=== PATIENT | male | born 1945 | race Caucasian/White ===

== ENCOUNTER 2021-10-01 08:00 | Outpatient (CLI) | payer MEDICAID, MEDICARE | END 2021-10-01 23:59 | disposition home or self-care (01) | LOC: LAB.N 08:00 | PROVIDERS: ATTEND Physician Assistant Medical | DX: U07.1 COVID-19 (principal) ==

== ENCOUNTER 2021-10-01 09:56 | Outpatient (CLI) | payer MEDICAID, MEDICARE ==
--- NOTE | 2021-10-01 10:58 | XRAY Report ---
PROCEDURE: Chest 2 View X-Ray INDICATIONS: PNEUMONIA TECHNIQUE: 2 view(s) of the chest. COMPARISON: None. FINDINGS: Surgical changes and devices: None. Lungs and pleura: No pleural effusions or pneumothorax. Ill-defined right basilar opacity. Mediastinum: Mediastinal contours are within normal limits. Heart size is normal. Bones and chest wall: No suspicious bony abnormalities. Soft tissues appear unremarkable. IMPRESSION: Ill-defined right basilar opacity. This could be due to pneumonia or atelectasis or aspiration. Reviewed by: Reji Nunez MD on 10/01/2021 10:57 AM [facility] Approved by: Reji Nunez MD on 10/01/2021 10:57 AM [facility] Station ID: [id number]
== END 2021-10-01 23:59 | disposition home or self-care (01) ==
LOC: EDBD → EDSEX → DI.N 09:56
PROVIDERS: ATTEND Physician Assistant Medical
DX: U07.1 COVID-19 (principal); J18.9 Pneumonia, unspecified organism
CPT/HCPCS: 71046; U0004

== ENCOUNTER 2021-10-03 13:03 | Emergency (ER) | payer MEDICAID, MEDICARE ==
--- NOTE | 2021-10-03 13:09 | ED Physician Documentation ---
PD HPI URI - Stated complaint Stated Complaint: C+ - History obtained from History obtained from: Patient - History of Present Illness Timing - onset: How many weeks ago (onset illness about a week ago with worse cough and malaise the past several days. Seen at [facility] 2 days ago with CXR and COVID test. Xray lower left infiltrate. Dx with pneumonia and Rx with DOxycycline. Feeling worse today and COVID test positive, so here for eval and MAB.) Timing duration: Weeks (1) Timing details: Gradual onset, Still present Associated symptoms: Fever, Chills, Nasal congestion, Dry cough, Dyspnea. No: NVD, Bilateral edema Contributing factors: Unimmunized (has not had COVID vaccine). No: Sick contact (his is sick in same timeframe, so presume they contacted together.), COPD / asthma Similar symptoms before: Has not had sx before Recently seen: Clinic (2 days ago) Review of Systems Constitutional: reports: Fever, Chills, Myalgias Nose: reports: Rhinorrhea / runny nose, Congestion Throat: denies: Sore throat Cardiac: denies: Chest pain / pressure Respiratory: reports: Dyspnea, Cough, Wheezing GI: denies: Vomiting, Diarrhea Skin: denies: Rash Musculoskeletal: denies: Extremity swelling Neurologic: reports: Generalized weakness. denies: Focal weakness, Numbness, Near syncope, Altered mental status PD PAST MEDICAL HISTORY - Past Medical History Cardiovascular: Hypertension Respiratory: None Neuro: None Endocrine/Autoimmune: Type 2 diabetes GI: Ulcers Psych: Depression - Past Surgical History Past Surgical History: Yes Ortho: Knee replacement, Rotator cuff repair - Present Medications Home Medications: Ambulatory Orders Medication Instructions Recorded Confirmed Citalopram [CeleXA] 40 mg 07/27/16 Hydrocodone/Acetaminophen [[place] 1 each PO Q6H PRN #15 tablet 07/27/16 5-325 Tablet] Meloxicam 15 mg 07/27/16 Naproxen 375 mg PO BID #20 tablet 07/27/16 Omeprazole 20 mg 07/27/16 amLODIPine [Norvasc] 5 mg 07/27/16 hydroCHLOROthiazide 25 mg 07/27/16 [Hydrochlorothiazide] lisinopriL [Lisinopril] 40 mg 07/27/16 Albuterol Sulf [Ventolin Hfa 3 - 4 puffs INH QID 10 Days #1 10/03/21 Inhaler] inhaler Benzonatate [Tessalon] 100 mg PO TID PRN #20 cap 10/03/21 dexAMETHasone [Decadron] 4 mg PO DAILY #5 tablet 10/03/21 - Allergies Allergies/Adverse Reactions: Allergies Allergy/AdvReac Type Severity Reaction Status Date / Time No Known Drug Allergies Allergy Verified 10/03/21 13:45 - Social History Does the pt smoke?: No Smoking Status: Never smoker Does the pt drink ETOH?: Yes Does the pt have substance abuse?: No - Immunizations Immunizations are current?: Yes PD ED PE NORMAL - Vitals Vital signs reviewed: Yes (sats just well enough at 90-92%.) - General General: Alert and oriented X 3, No acute distress, Well developed/nourished - Neck Neck: Supple, no meningeal sign, No adenopathy - Cardiac Cardiac: RRR, No murmur - Respiratory Respiratory: No: Clear bilaterally (wheezing noted expiratory diffusely. No coarse sounds. ) - Abdomen Abdomen: Soft, Non tender - Derm Derm: Normal color, Warm and dry - Neuro Neuro: Alert and oriented X 3, No motor deficit, Normal speech Results - Vitals Vitals: Vital Signs - 24 hr 10/03/21 10/03/21 10/03/21 13:43 13:52 14:02 Temperature 37.8 C 37.8 C Heart Rate 95 102 H 95 Respiratory 19 18 18 Rate Blood Pressure 158/89 H 158/89 H O2 Saturation 91 L 91 L 10/03/21 10/03/21 10/03/21 15:33 16:00 16:30 Temperature Heart Rate 86 80 Respiratory 20 18 Rate Blood Pressure 131/73 H 114/80 O2 Saturation 94 95 95 10/03/21 10/03/21 10/03/21 16:42 16:45 17:00 Temperature Heart Rate 82 81 Respiratory 20 18 Rate Blood Pressure 142/78 H O2 Saturation 92 89 L 10/03/21 17:32 Temperature Heart Rate 77 Respiratory 21 Rate Blood Pressure 137/77 H O2 Saturation 91 L Oxygen O2 Source Room air PD MEDICAL DECISION MAKING - ED course Complexity details: reviewed old records, reviewed results, re-evaluated patient (His oxygenation level is running mostly 90% to 93%. At times will go down to 6 into the 80s. However in discussion with him his preference is to not be in the hospital at this time. He does have an oximeter at home and will check his oxygenation frequently. He will return if consistently <90%.), d/w patient (The patient is interested in the monoclonal antibody therapy. He had been prescribed doxycycline at the walk-in clinic 2 days ago. No inhalers nor medication for cough or inflammation. At this point we could give him steroids and albuterol inhaler and Tessalon.) Departure - Departure Disposition: 01 Home, Self Care Clinical Impression: COVID-19 URI (upper respiratory infection) Qualifiers: URI type: unspecified URI Qualified Code(s): J06.9 - Acute upper respiratory infection, unspecified Condition: Stable Record reviewed to determine appropriate education?: Yes Follow-Up: TREVOR JIMÉNEZ DO [Primary Care Provider] - Prescriptions: dexAMETHasone [Decadron] 4 mg PO DAILY #5 tablet Benzonatate [Tessalon] 100 mg PO TID PRN #20 cap PRN Reason: Cough Albuterol Sulf [Ventolin Hfa Inhaler] 3 - 4 puffs INH QID 10 Days #1 inhaler Comments: Your oxygenation level does dip down into the upper 80s percent at times but is mostly in the lower 90s. This is on the cusp of needing hospitalization for supplemental oxygen and other therapies. Use the albuterol inhaler 3 to 4 puffs every 4 hours or so for the next several days to week and extra times as needed for wheezing. Decadron steroid daily for 5 more days. This will cause some elevation of your blood sugars. If your sugars elevate to highly, then you can just stop the s teroids and it should come down in the next day or so. Benzonatate if needed for cough. Continue your other usual medicines and you can continue the recent antibiotic prescription as well. You have an oximeter at home. Check your oxygenation every few hours or so for the next day or 2. Return to the ER if you are consistently around 90% or in the 80s percent. I understand your preference for which she did not be in the hospital but if you are more consistently low then you would have benefit from the supplemental oxygen along with other therapies that we could do in the hospital. I transmitted your prescriptions to the [facility] pharmacy.
[2021-10-03] MEDS ORDERED: ALBUTEROL 1 PUFF INH STA ×2 (13:36→16:35)
[2021-10-03] MEDS ORDERED: DEXAMETHASONE 10 MG/ML VIAL IVP STA (13:36)
[2021-10-03] MEDS ORDERED: ACETAMINOPHEN 325 MG TABLET PO STA (13:36)
[2021-10-03] MEDS ORDERED: CASIRIVIMAB/IMDEVIMAB 10 ML in SODIUM CHLORIDE 0.9% 50 ML IV ONE (14:30)
[2021-10-03 18:16] VITALS: BP 154/84
== END 2021-10-03 19:10 | disposition home or self-care (01) ==
LOC: ED 13:03
DX: U07.1 COVID-19 (principal); J06.9 Acute upper respiratory infection, unspecified; R06.2 Wheezing; I10 Essential (primary) hypertension; E11.9 Type 2 diabetes mellitus without complications
CPT/HCPCS: 94640; 94664; 96374; 99283; 99284; A9270; J7040; M0243; Q0244

== ENCOUNTER 2021-10-09 16:48 | Inpatient (IN) | payer MEDICARE ==
--- NOTE | 2021-10-09 17:52 | ED Physician Documentation ---
PD HPI DYSPNEA - Stated complaint Stated Complaint: C+ - History obtained from History obtained from: Patient - Additional information Additional information: 76-year-old gentleman who is not vaccinated against Covid but originally became symptomatic on the or so of this month. He was seen here on the and receive Regeneron Mab therapy. Now with increasing shortness of breath. He has been on doxycycline as the chest x-ray had shown a left lower lobe infiltrate. Review of Systems Ten Systems: 10 systems reviewed and negative Constitutional: reports: Fatigue, Reviewed and negative Respiratory: reports: Dyspnea, Cough PD PAST MEDICAL HISTORY - Past Medical History Cardiovascular: Hypertension Respiratory: None Neuro: None Endocrine/Autoimmune: Type 2 diabetes GI: Ulcers : None Psych: Depression Musculoskeletal: None - Past Surgical History Past Surgical History: Yes Ortho: Knee replacement, Rotator cuff repair - Present Medications Home Medications: Ambulatory Orders Medication Instructions Recorded Confirmed Citalopram [CeleXA] 40 mg 07/27/16 Hydrocodone/Acetaminophen [[place] 1 each PO Q6H PRN #15 tablet 07/27/16 5-325 Tablet] Meloxicam 15 mg 07/27/16 Naproxen 375 mg PO BID #20 tablet 07/27/16 Omeprazole 20 mg 07/27/16 amLODIPine [Norvasc] 5 mg 07/27/16 hydroCHLOROthiazide 25 mg 07/27/16 [Hydrochlorothiazide] lisinopriL [Lisinopril] 40 mg 07/27/16 Albuterol Sulf [Ventolin Hfa 3 - 4 puffs INH QID 10 Days #1 10/03/21 Inhaler] inhaler Benzonatate [Tessalon] 100 mg PO TID PRN #20 cap 10/03/21 dexAMETHasone [Decadron] 4 mg PO DAILY #5 tablet 10/03/21 - Allergies Allergies/Adverse Reactions: Allergies Allergy/AdvReac Type Severity Reaction Status Date / Time No Known Drug Allergies Allergy Verified 10/03/21 13:45 - Social History Does the pt smoke?: No Smoking Status: Never smoker Does the pt drink ETOH?: Yes Does the pt have substance abuse?: No - Immunizations Immunizations are current?: Yes PD ED PE NORMAL - Vitals Vital signs reviewed: Yes - General General: Alert and oriented X 3, Other (He appears breathless) - HEENT HEENT: PERRL, EOMI - Neck Neck: Supple, no meningeal sign, No bony TTP - Cardiac Cardiac: RRR, No murmur - Respiratory Respiratory: Other (Breathless with relatively clear lungs) - Abdomen Abdomen: Normal bowel sounds, Soft, Non tender - Back Back: No CVA TTP, No spinal TTP - Derm Derm: Normal color, Warm and dry - Extremities Extremities: No edema, No calf tenderness / cord - Neuro Neuro: Alert and oriented X 3, Normal speech Results - Vitals Vitals: Vital Signs - 24 hr 10/09/21 10/09/21 10/09/21 17:33 17:35 18:19 Temperature 37.3 C 37.3 C Heart Rate 104 H 104 H 108 H Respiratory 28 H 28 H 26 H Rate Blood Pressure 180/101 H 180/101 H 156/96 H O2 Saturation 95 77 L 93 10/09/21 10/09/21 18:30 19:30 Temperature Heart Rate 103 H 98 Respiratory 20 24 Rate Blood Pressure 157/98 H 181/99 H O2 Saturation 95 95 Oxygen O2 Source Room air Oxygen Flow Rate 3 - EKG (time done) 1751 Rate: Rate (enter#) (107) Rhythm: Sinus tachycardia [place]: RAD Intervals: Normal TN QRS: Normal Ischemia: Non specific changes Computer interpretation: Agree with computer - Labs Labs: Laboratory Tests 10/09/21 10/09/21 10/09/21 17:33 17:50 18:26 WBC 12.0 H RBC 5.71 Hgb 17.0 Hct 52.0 MCV 91.1 MCH 29.8 MCHC 32.7 RDW 13.4 Plt Count 127 L MPV 10.8 Neut # (Auto) 10.0 H Lymph # (Auto) 1.0 L [place] # (Auto) 0.6 Eos # (Auto) 0.1 Baso # (Auto) 0.0 Absolute Nucleated RBC 0.06 Nucleated RBC % 0.5 Manual Slide Review Indicated Platelet Estimate DECREASED (<130,000) Platelet Morphology 1+ GIANT PLATELETS RBC Morph Micro Appear NORMAL APPEARANCE D-Dimer > 1050.0 H Sodium 136 Potassium 4.5 Chloride 96 L Carbon Dioxide 29 Anion Gap 11.0 BUN 16 Creatinine 0.7 Estimated GFR (MDRD) 110 Glucose 146 H Calcium 9.5 Phosphorus 3.3 PD MEDICAL DECISION MAKING - ED course ED course: 76-year-old gentleman who is not vaccinated against Covid has developed progressive Covid pneumonia now with significant hypoxemia with a sat of less than 80% at rest without oxygen. He requires approximately 3 L of supplemental oxygen here in the department. His D-dimer was elevated and he was administered full dose Lovenox. Spoke with Dr. Farias for admission at 7:38 PM. Departure - Departure Disposition: 66 [facility] DC/Xfer Clinical Impression: COVID-19, Respiratory failure with hypoxia Condition: Stable
[2021-10-09] MEDS ORDERED: ENOXAPARIN 100 MG/ML SYRINGE SUBQ STA (18:06)
[2021-10-09 18:32] LABS: BASOPHILS % (AUTO) 0.3 %; EOSINOPHILS # (AUTO) 0.1 10^3/uL (0.0-0.7); EOSINOPHILS % (AUTO) 0.8 %; MEAN CORPUSCULAR HEMOGLOBIN 29.8 pg (27.0-31.0); MEAN CORPUSCULAR HGB CONC 32.7 g/dL (32.0-36.0); MEAN CORPUSCULAR VOLUME 91.1 fL (80.0-94.0); MEAN PLATELET VOLUME 10.8 fL (7.4-11.4); MONOCYTES # (AUTO) 0.6 10^3/uL (0.0-1.0); MONOCYTES % (AUTO) 5.2 %; NEUTROPHILS % (AUTO) 83.4 %; NRBC ABSOLUTE COUNT (AUTO) 0.06 x10^3/uL; NUCLEATED RED BLOOD CELLS AUTO 0.5 /100WBC; PLT - PLATELET COUNT 127 10^3/uL (130-450); RED BLOOD COUNT 5.71 10^6/uL (4.70-6.10); RED CELL DISTRIBUTION WIDTH 13.4 % (12.0-15.0)
[2021-10-09 18:35] LABS: SLIDE REVIEW? Indicated
[2021-10-09 18:37] LABS: CALCIUM 9.5 mg/dL (8.5-10.3); CREATININE 0.7 mg/dL (0.6-1.2); PHOSPHORUS 3.3 mg/dL (2.5-4.6); POTASSIUM 4.5 mmol/L (3.5-5.0)
[2021-10-09 18:58] LABS: RBC MORPHOLOGY (MULTIPLE) NORMAL APPEARANCE (NORMAL)
[2021-10-09 18:59] LABS: PLATELET ESTIMATE, MANUAL DECREASED (<130,000) (NORMAL); PLATELET MORPHOLOGY 1+ GIANT PLATELETS (NORMAL)
[2021-10-09] MEDS ORDERED: ACETAMINOPHEN 325 MG TABLET PO PRN (19:42)
[2021-10-09] MEDS ORDERED: ONDANSETRON 4 MG/2 ML VIAL IVP PRN (19:42)
--- NOTE | 2021-10-09 19:49 | HISTORY & PHYSICAL EXAMINATION ---
Chief Complaint - Chief Complaint Chief Complaint: dyspnea and hypoxia History of Present Illness - Admitted From Admitted From:: [facility] ED - History Obtained From Records Reviewed: yes History obtained from: patient - History of Present Illness HPI Comment/Other: Patient is a 76-year-old male who presented to the ED with complaint of dyspnea. He is not vaccinated against COVID-19. He initially had symptoms consistent with COVID-19 on 09/29/2021. He was seen in the emergency department on 10/03/2021 and received Regeneron then discharged home. He was also prescribed doxycycline for a left lower lobe infiltrate seen on x-ray at the time. He presented today with complaint of worsening dyspnea and productive cough of yellowish to greenish sputum. He had also been wheezing at home. He denied fever or chills. In the ED on room air he was noted to have an oxygen saturation as low as 77%. Chest x-ray done in the ED showed diffuse bilateral airspace opacities suspicious for pneumonia, including viral agents such as COVID-19. Findings have progressed when compared to the radiograph from 10/01/2021. As a result of the above the patient was presented for admission. At bedside he denied chest pain or feeling dyspneic. He denied abdominal pain, nausea, vomiting, fever or chills. He has mild crackles on auscultation of lungs and 2+ lower extremity edema. History - Past Medical History Cardiovascular: reports: Hypertension Respiratory: reports: None Neuro: reports: None Endocrine/Autoimmune: reports: Type 2 diabetes GI: reports: Ulcers : reports: None Psych: reports: Depression Musculoskeletal: reports: None MRSA Hx?: No - Past Surgical History Ortho: reports: Knee replacement, Rotator cuff repair - Family & Social History Family History Comment/Other: Mother of lung cancer. She was a smoker. Father of heart disease. Social History Notes: He lives at home with his . He does not consume tobacco products or recreational substances. He occasionally consumes alcohol. He works with [employer]. - POLST Patient has POLST: No POLST Status: Full Code Meds/Allgy - Home Medications Home Medications: Ambulatory Orders Medication Instructions Recorded Confirmed Citalopram [CeleXA] 40 mg 07/27/16 Hydrocodone/Acetaminophen [[place] 1 each PO Q6H PRN #15 tablet 07/27/16 5-325 Tablet] Meloxicam 15 mg 07/27/16 Naproxen 375 mg PO BID #20 tablet 07/27/16 Omeprazole 20 mg 07/27/16 amLODIPine [Norvasc] 5 mg 07/27/16 hydroCHLOROthiazide 25 mg 07/27/16 [Hydrochlorothiazide] lisinopriL [Lisinopril] 40 mg 07/27/16 Albuterol Sulf [Ventolin Hfa 3 - 4 puffs INH QID 10 Days #1 10/03/21 Inhaler] inhaler Benzonatate [Tessalon] 100 mg PO TID PRN #20 cap 10/03/21 dexAMETHasone [Decadron] 4 mg PO DAILY #5 tablet 10/03/21 - Allergies Allergies/Adverse Reactions: Allergies Allergy/AdvReac Type Severity Reaction Status Date / Time No Known Drug Allergies Allergy Verified 10/03/21 13:45 Review of Systems - Constitutional Constitutional: reports: Malaise. denies: Fever, Chills - Eyes Eyes: denies: Pain, Vision loss, Dipolpia - Ears, Nose & Throat Ears, Nose & Throat: denies: Ear pain, Sore throat - Cardiovascular Cariovascular: denies: Irregular heart rate, Chest pain, Edema, Lightheadedness, Syncope - Respiratory Respiratory: reports: Cough, Sputum production, Wheezing, SOB at rest, SOB with exertion - Gastrointestinal Gastrointestinal: reports: Reflux/heartburn. denies: Abdominal pain, Abdominal distention, Constipation, Diarrhea, Nausea, Vomiting - Genitourinary Genitourinary: denies: Dysuria, Frequency, Urgency, Hematuria, Incontinence, Flank pain, Nocturia - Musculoskeletal Musculoskeletal: denies: Muscle pain, Back pain, Muscle aches - Integumentary Integumentary: denies: Rash, Pruritis, Lesions, Dryness - Neurological Neurological: denies: General weakness, Focal weakness, Headache, Dizziness - Psychiatric Psychiatric: denies: Depression, Anxiety - Endocrine Endocrine: denies: Polyuria, Polydypsia - Hematologic/Lymphatic Hematologic/Lymphatic: denies: Anemia, Bruising, Petechiae Prior Level of Functionality: Patient is normally independent of activities of daily living. Exam - Vital Signs Vital Signs: Vital Signs x48h Temp Pulse Resp BP Pulse Ox 10/09/21 19:30 98 24 181/99 H 95 10/09/21 18:30 103 H 20 157/98 H 95 10/09/21 18:19 108 H 26 H 156/96 H 93 10/09/21 17:35 37.3 C 104 H 28 H 180/101 H 77 L 10/09/21 17:33 37.3 C 104 H 28 H 180/101 H 95 - Physical Exam General Appearance: positive: Alert, Moderate distress (respiratory) Eyes Bilateral: positive: PERRL, EOMI ENT: positive: No signs of dehydration Neck: positive: Thyroid nml, No JVD Respiratory: positive: Chest non-tender, Wheezes, Other (moderate respiratory distress, Mild crackles in lung bases.) Cardiovascular: positive: No murmur, Tachycardia Abdomen: positive: Non-tender, No organomegaly, Nml bowel sounds, No distention. negative: Guarding, Rebound Back: positive: Nml inspection Skin: positive: Color nml, No rash, Warm, Dry Extremities: positive: Non-tender, Full ROM, Nml appearance, Pedal edema Neurologic/Psychiatric: positive: Oriented x3, Mood/affect nml Conclusion/Plan - Problem List (1) Respiratory failure with hypoxia Conclusion/Plan: Secondary to COVID-19 pneumonia. On room air patient's oxygen saturation dropped to 77%. Placed on 3 L of oxygen via nasal cannula in the ED but immediately switched to Hi rosalind nasal canula at FIO2 of 30% with O2Sat at 91% upon arrival to Med/Surg Floor Remdesivir to start in the morning of 10/10/2021. Decadron 6 mg IV daily day 10/26 Lovenox 90 mg subcu twice daily. Patient's D-dimer was 1050. WBC 12. He also complained of productive cough. As a result Rocephin 1 g IV daily day 10/21 and azithromycin 500 mg IV daily Day 1 initiated Qualifiers: Chronicity: acute Qualified Code(s): J96.01 - Acute respiratory failure with hypoxia (2) COVID-19 Conclusion/Plan: Patient is unvaccinated for COVID-19. On room air patient's oxygen saturation dropped to 77%. Placed on 3 L of oxygen via nasal cannula in the ED but immediately switched to Hi rosalind nasal canula at FIO2 of 30% with O2Sat at 91% upon arrival to Med/Surg Floor Remdesivir to start in the morning of 10/10/2021. Decadron 6 mg IV daily day 10/26 Lovenox 90 mg subcu twice daily. Patient's D-dimer was 1050. WBC 12. He also complained of productive cough. As a result Rocephin 1 g IV daily day 10/21 and azithromycin 500 mg IV daily Day 10/19 initiated (3) Hypertension Conclusion/Plan: Labetalol and hydralazine IV ordered every 6 hours as needed for systolic blood pressure greater than 160. (4) GERD (gastroesophageal reflux disease) Conclusion/Plan: Protonix 40 mg p.o. Daily AC ordered. (5) Depression Conclusion/Plan: Will resume patient's Celexa at home dose once verified. (6) Diabetes mellitus Conclusion/Plan: Will hold the patient's metformin Accucheck qAc and HS. SSI Check HgA1C. Carb-controlled Diet Qualifiers: Diabetes mellitus type: type 2 (7) KELLY on CPAP Conclusion/Plan: CPAP qhs at home setting - Lab Results Fish Bones: 10/09/21 17:50 10/09/21 17:33 Core Measures - Anticipated LOS I expect patient to be DC'd or transferred within 96 hours.: Yes - DVT/VTE - Prophylaxis VTE/DVT Device ordered at admit?: Yes
[2021-10-09] MEDS ORDERED: hydrALAZINE INJ 20 MG/ML VIAL IVP PRN (20:14)
[2021-10-09] MEDS ORDERED: LABETALOL 20 MG/4 ML SYRINGE IVP PRN (20:15)
--- NOTE | 2021-10-09 20:46 | XRAY Report ---
PROCEDURE: Chest 1 View X-Ray INDICATIONS: dyspnea TECHNIQUE: One view of the chest was acquired. COMPARISON: Chest radiographs 10/01/2021 FINDINGS: Surgical changes and devices: None. Lungs and pleura: No pleural effusions or pneumothorax. Patchy airspace opacities are seen in the ri ght mid to lower lung zones as well as peripherally within the left midlung zone and possibly of the left lung base. No pleural effusion or pneumothorax. Mediastinum: Mediastinal contours appear normal. Heart size is normal. Bones and chest wall: No suspicious bony lesions. Overlying soft tissues appear unremarkable. IMPRESSION: Diffuse bilateral airspace opacities are suspicious for pneumonia, including with viral agents such a s Covid-19. Findings have progressed when compared to the radiographs from 10/01/2021. Reviewed by: Diego Cannon MD on 10/09/2021 8:45 PM PST Approved by: Diego Cannon MD on 10/09/2021 8:45 PM PST Station ID: [id number]
[2021-10-09] MEDS: DEXAMETHASONE 4 MG/ML VIAL IVP SCH (20:55)
[2021-10-09] MEDS: SODIUM CHLORIDE FLUSH 0.9% 10 ML SYRINGE IVP PRN ×2 (20:56→22:48)
[2021-10-09] MEDS: AZITHROMYCIN INJ 500 MG in SODIUM CHLORIDE 0.9% 250 ML IV SCH (22:47)
[2021-10-09] MEDS: INSULIN ASPART 300 UNIT/3 ML PEN SUBQ SCH (22:47)
[2021-10-10] MEDS: SODIUM CHLORIDE FLUSH 0.9% 10 ML SYRINGE IVP SCH ×3 (00:59→17:05)
[2021-10-10] MEDS: cefTRIAXone 1 GM in SODIUM CHLORIDE 0.9% MINIBAG 100 ML IV SCH ×2 (00:59→09:19)
[2021-10-10 06:27] LABS: BASOPHILS % (AUTO) 0.3 %; EOSINOPHILS % (AUTO) 0.1 %; HCT - HEMATOCRIT 48.2 % (42.0-52.0); HGB - HEMOGLOBIN 15.7 g/dL (14.0-18.0); LYMPHOCYTES # (AUTO) 0.9 10^3/uL (1.5-3.5); LYMPHOCYTES % (AUTO) 12.6 %; MEAN CORPUSCULAR HEMOGLOBIN 29.6 pg (27.0-31.0); MEAN CORPUSCULAR HGB CONC 32.6 g/dL (32.0-36.0); MEAN CORPUSCULAR VOLUME 90.8 fL (80.0-94.0); MEAN PLATELET VOLUME 10.2 fL (7.4-11.4); MONOCYTES # (AUTO) 0.3 10^3/uL (0.0-1.0); MONOCYTES % (AUTO) 4.5 %; NEUTROPHILS # (AUTO) 5.7 10^3/uL (1.5-6.6); NEUTROPHILS % (AUTO) 80.2 %; NRBC ABSOLUTE COUNT (AUTO) 0.02 x10^3/uL; NUCLEATED RED BLOOD CELLS AUTO 0.3 /100WBC; PLT - PLATELET COUNT 107 10^3/uL (130-450); RED BLOOD COUNT 5.31 10^6/uL (4.70-6.10); RED CELL DISTRIBUTION WIDTH 13.3 % (12.0-15.0); WHITE BLOOD COUNT 7.1 x10^3/uL (4.8-10.8)
[2021-10-10 06:34] LABS: CALCIUM 8.9 mg/dL (8.5-10.3); CREATININE 0.7 mg/dL (0.6-1.2); POTASSIUM 4.6 mmol/L (3.5-5.0)
[2021-10-10] MEDS ORDERED: PANTOPRAZOLE 40 MG TABLET PO SCH (07:00)
--- NOTE | 2021-10-10 07:47 | PROVIDER PROGRESS NOTE ---
Subjective - Prog Note Date Prog Note Date: 10/10/21 - Subjective Subjective: He still feels short of breath but much improved compared to yesterday. He feels like his lower extremities are slightly more edematous than usual. Has an occasional cough. Current Medications - Current Medications Current Medications: Active Medications Acetaminophen (Acetaminophen 325 Mg Tablet) 650 mg PO Q4HR PRN PRN Reason: Pain 1 to 4 Dexamethasone (Dexamethasone 4 Mg/Ml Vial) 6 mg IVP DAILY [facility] Stop: 10/18/21 09:01 Last Admin: 10/09/21 20:55 Dose: 6 mg Documented by: Enoxaparin Sodium (Enoxaparin 80 Mg/0.8 Ml Syringe) 90 mg SUBQ BID [facility] Hydralazine HCl (Hydralazine Inj 20 Mg/Ml Vial) 10 mg IVP Q6H PRN PRN Reason: PER PHYSICIAN ORDER Azithromycin 500 mg/ Sodium (Chloride) 250 mls @ 250 mls/hr IV DAILY [facility] Stop: 10/11/21 09:59 Last Infusion: 10/10/21 00:59 Dose: Infused Documented by: Ceftriaxone Sodium 1 gm/ (Sodium Chloride) 100 mls @ 200 mls/hr IV DAILY [facility] Stop: 10/13/21 09:29 Last Infusion: 10/10/21 02:29 Dose: Infused Documented by: Insulin Aspart (Insulin Aspart 300 Unit/3 Ml Pen) 1 - 5 unit SUBQ 0800,1200,1700,2100 [facility]; Protocol Last Admin: 10/09/21 22:47 Dose: 1 unit Documented by: Labetalol HCl (Labetalol 20 Mg/4 Ml Syringe) 10 mg IVP Q6H PRN PRN Reason: PER PHYSICIAN ORDER Ondansetron HCl (Ondansetron 4 Mg/2 Ml Vial) 4 mg IVP Q6HR PRN PRN Reason: Nausea / Vomiting Pantoprazole Sodium (Pantoprazole 40 Mg Tablet) 40 mg PO QDAC [facility] Last Admin: 10/10/21 06:29 Dose: 40 mg Documented by: Sodium Chloride (Sodium Chloride Flush 0.9% 10 Ml Syringe) 10 ml IVP PRN PRN PRN Reason: NEEDED PER PROVIDER ORDERS Last Admin: 10/09/21 22:48 Dose: 10 ml Documented by: Sodium Chloride (Sodium Chloride Flush 0.9% 10 Ml Syringe) 10 ml IVP 01 00,0900,1700 [facility] Last Admin: 10/10/21 00:59 Dose: Not Given Documented by: Citalopram [CeleXA] 40 mg 07/27/16 Meloxicam 15 mg 07/27/16 Omeprazole 20 mg 07/27/16 amLODIPine [Norvasc] 5 mg 07/27/16 hydroCHLOROthiazide [Hydrochlorothiazide] 25 mg 07/27/16 lisinopriL [Lisinopril] 40 mg 07/27/16 Objective - Vital Signs/Intake & Output Reviewed Vital Signs: Yes Vital Signs: Vital Signs x48h Temp Pulse Resp BP Pulse Ox 10/10/21 02:00 134/79 H 10/10/21 00:55 36.6 C 74 22 165/96 H 95 Intake & Output: Intake & Output 10/07/21 10/08/21 10/09/21 10/10/21 23:59 23:59 23:59 23:59 Intake Total 150 450 Output Total 125 Balance 150 325 - Objective General Appearance: positive: No acute distress, Alert Eyes Bilateral: positive: Normal inspection, Conjunctivae nml ENT: positive: ENT inspection nml, Other (HFNC in place.) Neck: positive: Nml inspection Respiratory: positive: No respiratory distress, Rhonchi. negative: Wheezes, Rales Cardiovascular: positive: Regular rate & rhythm, Extrasystoles. negative: Irregularly irregular, Tachycardia Abdomen: positive: Non-tender, No distention. negative: Tenderness Skin: positive: Warm, Dry Extremities: positive: Pedal edema (+1 edema in bilateral lower extremities.) Neurologic/Psychiatric: negative: Disoriented to person, Disoriented to place - Lab Results Fish Bones: 10/10/21 06:16 10/10/21 06:16 Other Labs: Lab Results x24hrs 10/10/21 10/10/21 10/09/21 Range/Units 06:16 06:16 21:31 WBC 7.1 (4.8-10.8) x10^3/uL RBC 5.31 (4.70-6.10) 10^6/uL Hgb 15.7 (14.0-18.0) g/dL Hct 48.2 (42.0-52.0) % MCV 90.8 (80.0-94.0) fL MCH 29.6 (27.0-31.0) pg MCHC 32.6 (32.0-36.0) g/dL RDW 13.3 (12.0-15.0) % Plt Count 107 L (130-450) 10^3/uL MPV 10.2 (7.4-11.4) fL Neut # (Auto) 5.7 (1.5-6.6) 10^3/uL Lymph # (Auto) 0.9 L (1.5-3.5) 10^3/uL Brooke # (Auto) 0.3 (0.0-1.0) 10^3/uL Eos # (Auto) 0.0 (0.0-0.7) 10^3/uL Baso # (Auto) 0.0 (0.0-0.1) 10^3/uL Absolute Nucleated RBC 0.02 x10^3/uL Nucleated RBC % 0.3 /100WBC Manual Slide Review Platelet Estimate (NORMAL) Platelet Morphology (NORMAL) RBC Morph Micro Appear (NORMAL) D-Dimer (200.0-255.0) ng/mL Sodium 135 (135-145) mmol/L Potassium 4.6 (3.5-5.0) mmol/L Chloride 99 L (101-111) mmol/L Carbon Dioxide 27 (21-32) mmol/L Anion Gap 9.0 (6-13) BUN 17 (6-20) mg/dL Creatinine 0.7 (0.6-1.2) mg/dL Estimated GFR (MDRD) 110 (>89) Glucose 212 H (70-100) mg/dL POC Whole Bld Glucose 174 H (70 - 100) mg/dL Calcium 8.9 (8.5-10.3) mg/dL Phosphorus (2.5-4.6) mg/dL 10/09/21 10/09/21 10/09/21 Range/Units 18:26 17:50 17:33 WBC 12.0 H (4.8-10.8) x10^3/uL RBC 5.71 (4.70-6.10) 10^6/uL Hgb 17.0 (14.0-18.0) g/dL Hct 52.0 (42.0-52.0) % MCV 91.1 (80.0-94.0) fL MCH 29.8 (27.0-31.0) pg MCHC 32.7 (32.0-36.0) g/dL RDW 13.4 (12.0-15.0) % Plt Count 127 L (130-450) 10^3/uL MPV 10.8 (7.4-11.4) fL Neut # (Auto) 10.0 H (1.5-6.6) 10^3/uL Lymph # (Auto) 1.0 L (1.5-3.5) 10^3/uL Brooke # (Auto) 0.6 (0.0-1.0) 10^3/uL Eos # (Auto) 0.1 (0.0-0.7) 10^3/uL Baso # (Auto) 0.0 (0.0-0.1) 10^3/uL Absolute Nucleated RBC 0.06 x10^3/uL Nucleated RBC % 0.5 /100WBC Manual Slide Review Indicated Platelet Estimate DECREASED (<130,000) (NORMAL) Platelet Morphology 1+ GIANT PLATELETS (NORMAL) RBC Morph Micro Appear NORMAL APPEARANCE (NORMAL) D-Dimer > 1050.0 H (200.0-255.0) ng/mL Sodium 136 (135-145) mmol/L Potassium 4.5 (3.5-5.0) mmol/L Chloride 96 L (101-111) mmol/L Carbon Dioxide 29 (21-32) mmol/L Anion Gap 11.0 (6-13) BUN 16 (6-20) mg/dL Creatinine 0.7 (0.6-1.2) mg/dL Estimated GFR (MDRD) 110 (>89) Glucose 146 H (70-100) mg/dL POC Whole Bld Glucose (70 - 100) mg/dL Calcium 9.5 (8.5-10.3) mg/dL Phosphorus 3.3 (2.5-4.6) mg/dL ABX Reporting Has patient been on IV antibiotics over the past 48 hours?: Yes Assessment/Plan - Problem List (1) Acute respiratory failure with hypoxia Impression: This is secondary to COVID-19 pneumonia. He was saturating the 70s on room air is now requiring high flow nasal cannula. We have him on Decadron and therapeutic Lovenox given the elevated D-dimer. We also have him on IV antibiotics given the elevated white count on admission. We will continue Decadron with today being day 2. Today's also day 2 of ceftriaxone and azithromycin. We will start remdesivir today. Continue supplemental oxygen for goal saturation greater than 92%. Given the elevated D-dimer, we will keep him on therapeutic Lovenox but look to obtain a CT angiogram today. (2) COVID-19 Impression: This is a cause of his respiratory failure. The plan is as mentioned above. Continue contact precautions. (3) Diabetes mellitus Impression: His blood glucose is elevated at greater than 200 and this is exacerbated by the steroids. We will start him on Lantus 10 units in the morning and continue sliding scale. Check an A1c. Qualifiers: Diabetes mellitus type: type 2 (4) Hypertension Impression: He is hypertensive with systolics in the 130s to 160s. We will resume his home lisinopril and amlodipine. (5) GERD (gastroesophageal reflux disease) Impression: Continue his home omeprazole. (6) Depression Impression: We will continue home Celexa. (7) KELLY on CPAP Impression: We will continue his home CPAP at night.
[2021-10-10] MEDS ORDERED: ENOXAPARIN 80 MG/0.8 ML SYRINGE SUBQ SCH (09:00)
[2021-10-10] MEDS ORDERED: REMDESIVIR 100MG VIAL 200 MG in SODIUM CHLORIDE 0.9% 250 ML IV ONE (09:00)
[2021-10-10] MEDS: INSULIN ASPART 300 UNIT/3 ML PEN SUBQ SCH ×4 (09:17→21:22)
[2021-10-10] MEDS: AZITHROMYCIN INJ 500 MG in SODIUM CHLORIDE 0.9% 250 ML IV SCH (09:19)
[2021-10-10] MEDS: DEXAMETHASONE 4 MG/ML VIAL IVP SCH (09:21)
--- NOTE | 2021-10-10 09:35 | PHARMACY PROGRESS NOTE ---
- Best Possible Medication History Admit Date and Time: 10/09/211941 Processed by: Pharmacy Medication History completed: Yes Patient Interview: Pt unable to participate Secondary Source(s): Pharmacy records, Insurance records As the person ultimately responsible for medication therapy, providers are able to order a medication from an existing home medication list in [facility] via the "Reconcile Routine" prior to Confirmation of that medication by pc support specialist. Such practice is discouraged except when the physician, in their clinical judgment, deems that a medical need exists for a medication without regard to previous use.
[2021-10-10] MEDS: INSULIN GLARGINE 300 UNIT/3 ML PEN SUBQ SCH (10:55)
[2021-10-10] MEDS: ENOXAPARIN 100 MG/ML SYRINGE SUBQ SCH ×2 (10:55→21:22)
[2021-10-10 11:28] LABS: ESTIMATED AVERAGE GLUCOSE 163 mg/dL (70-100); HEMOGLOBIN A1c% 7.3 % (4.27-6.07)
[2021-10-10] MEDS: amLODIPine 5 MG TABLET PO SCH (14:08)
[2021-10-10] MEDS ORDERED: BENZONATATE 100 MG CAPSULE PO PRN (17:46)
[2021-10-11] MEDS: SODIUM CHLORIDE FLUSH 0.9% 10 ML SYRINGE IVP SCH ×3 (02:37→18:40)
[2021-10-11 06:07] LABS: BASOPHILS % (AUTO) 0.2 %; EOSINOPHILS # (AUTO) 0.1 10^3/uL (0.0-0.7); EOSINOPHILS % (AUTO) 0.5 %; HCT - HEMATOCRIT 46.4 % (42.0-52.0); HGB - HEMOGLOBIN 15.1 g/dL (14.0-18.0); LYMPHOCYTES # (AUTO) 1.2 10^3/uL (1.5-3.5); LYMPHOCYTES % (AUTO) 12.8 %; MEAN CORPUSCULAR HEMOGLOBIN 29.7 pg (27.0-31.0); MEAN CORPUSCULAR HGB CONC 32.5 g/dL (32.0-36.0); MEAN CORPUSCULAR VOLUME 91.3 fL (80.0-94.0); MEAN PLATELET VOLUME 10.5 fL (7.4-11.4); MONOCYTES # (AUTO) 0.7 10^3/uL (0.0-1.0); MONOCYTES % (AUTO) 7.3 %; NEUTROPHILS # (AUTO) 7.5 10^3/uL (1.5-6.6); NEUTROPHILS % (AUTO) 77.3 %; PLT - PLATELET COUNT 128 10^3/uL (130-450); RED BLOOD COUNT 5.08 10^6/uL (4.70-6.10); RED CELL DISTRIBUTION WIDTH 13.3 % (12.0-15.0); WHITE BLOOD COUNT 9.7 x10^3/uL (4.8-10.8)
[2021-10-11 06:10] LABS: CREATININE 0.7 mg/dL (0.6-1.2); POTASSIUM 4.1 mmol/L (3.5-5.0)
[2021-10-11] MEDS: PANTOPRAZOLE 40 MG TABLET PO SCH (06:50)
--- NOTE | 2021-10-11 07:37 | PROVIDER PROGRESS NOTE ---
Subjective - Prog Note Date Prog Note Date: 10/11/21 - Subjective Subjective: He feels so much better today. Still has a cough but his dyspnea is significantly improved. He still has lower extremity edema which he states is worse than usual. He was started on furosemide recently and was previously on hydrochlorothiazide. Current Medications - Current Medications Current Medications: Active Medications Acetaminophen (Acetaminophen 325 Mg Tablet) 650 mg PO Q4HR PRN PRN Reason: Pain 1 to 4 Allopurinol (Allopurinol 100 Mg Tablet) 100 mg PO DAILY [facility] Last Admin: 10/11/21 08:38 Dose: 100 mg Documented by: Amlodipine Besylate (Amlodipine 5 Mg Tablet) 5 mg PO DAILY [facility] Last Admin: 10/11/21 08:38 Dose: 5 mg Documented by: Benzonatate (Benzonatate 100 Mg Capsule) 100 mg PO TID PRN PRN Reason: Cough Dexamethasone (Dexamethasone 4 Mg/Ml Vial) 6 mg IVP DAILY [facility] Stop: 10/18/21 09:01 Last Admin: 10/11/21 09:00 Dose: 6 mg Documented by: Enoxaparin Sodium (Enoxaparin 100 Mg/Ml Syringe) 90 mg SUBQ BID [facility] Last Admin: 10/11/21 09:01 Dose: 90 mg Documented by: Furosemide (Furosemide 20 Mg Tablet) 20 mg PO DAILY [facility] Last Admin: 10/11/21 09:01 Dose: 20 mg Documented by: Hydralazine HCl (Hydralazine Inj 20 Mg/Ml Vial) 10 mg IVP Q6H PRN PRN Reason: PER PHYSICIAN ORDER Last Admin: 10/10/21 17:04 Dose: 10 mg Documented by: Ceftriaxone Sodium 1 gm/ (Sodium Chloride) 100 mls @ 200 mls/hr IV DAILY [facility] Stop: 10/13/21 09:29 Last Infusion: 10/11/21 09:33 Dose: Infused Documented by: Remdesivir 100 mg/ Sodium (Chloride) 100 mls @ 200 mls/hr IV DAILY [facility] Stop: 10/14/21 09:29 Last Infusion: 10/11/21 10:44 Dose: Infused Documented by: Insulin Aspart (Insulin Aspart 300 Unit/3 Ml Pen) 1 - 5 unit SUBQ 0800,1200,1700,2100 [facility]; Protocol Last Admin: 10/11/21 11:52 Dose: 2 unit Documented by: Insulin Glargine (Insulin Glargine 300 Unit/3 Ml Pen) 10 unit SUBQ DAILY [facility] Last Admin: 10/11/21 09:01 Dose: 10 unit Documented by: Lisinopril (Lisinopril 20 Mg Tablet) 40 mg PO DAILY [facility] Last Admin: 10/11/21 09:02 Dose: 40 mg Documented by: Metoprolol Succinate (Metoprolol Succinate 25 Mg Tablet) 25 mg PO DAILY [facility] Last Admin: 10/11/21 09:02 Dose: 25 mg Documented by: Ondansetron HCl (Ondansetron 4 Mg/2 Ml Vial) 4 mg IVP Q6HR PRN PRN Reason: Nausea / Vomiting Pantoprazole Sodium (Pantoprazole 40 Mg Tablet) 40 mg PO QDAC [facility] Last Admin: 10/11/21 06:50 Dose: 40 mg Documented by: Sodium Chloride (Sodium Chloride Flush 0.9% 10 Ml Syringe) 10 ml IVP PRN PRN PRN Reason: NEEDED PER PROVIDER ORDERS Last Admin: 10/09/21 22:48 Dose: 10 ml Documented by: Sodium Chloride (Sodium Chloride Flush 0.9% 10 Ml Syringe) 10 ml IVP 0100,0900,1700 [facility] Last Admin: 10/11/21 09:02 Dose: 10 ml Documented by: Omeprazole 20 mg PO QDAC 07/27/16 amLODIPine [Norvasc] 5 mg PO DAILY 07/27/16 lisinopriL [Lisinopril] 40 mg PO DAILY 07/27/16 Albuterol Sulf [Ventolin Hfa Inhaler] 1 - 2 puffs INH Q4H PRN 10/10/21 Furosemide [Lasix] 20 mg PO DAILY 10/10/21 Metoprolol Succinate [Toprol Xl] 25 mg PO DAILY 10/10/21 allopurinoL [Zyloprim] 100 mg PO DAILY 10/10/21 metFORMIN [Glucophage] 500 mg PO BIDWM 10/10/21 Objective - Vital Signs/Intake & Output Reviewed Vital Signs: Yes Vital Signs: Vital Signs x48h Temp Pulse Resp BP Pulse Ox 10/11/21 06:18 36.4 C L 66 19 158/91 H 96 10/11/21 01:00 36.4 C L 72 17 167/81 H 99 Intake & Output: Intake & Output 10/08/21 10/09/21 10/10/21 12/26/21 23:59 23:59 23:59 23:59 Intake Total 150 2170 300 Output Total 525 300 Balance 150 1645 0 - Objective General Appearance: positive: No acute distress, Alert Eyes Bilateral: positive: Normal inspection, Conjunctivae nml ENT: positive: ENT inspection nml Neck: positive: Thyroid nml Respiratory: positive: No respiratory distress, Rhonchi. negative: Wheezes, Rales Cardiovascular: positive: Regular rate & rhythm, No murmur. negative: Tachycardia Skin: positive: Warm, Dry Extremities: positive: Pedal edema (+1 edema in bilateral lower extremities.) Neurologic/Psychiatric: negative: Disoriented to person, Disoriented to place - Lab Results Fish Bones: 10/11/21 05:30 10/11/21 05:30 Other Labs: Lab Results x24hrs 10/11/21 10/11/21 10/10/21 Range/Units 05:30 05:30 21:19 WBC 9.7 (4.8-10.8) x10^3/uL RBC 5.08 (4.70-6.10) 10^6/uL Hgb 15.1 (14.0-18.0) g/dL Hct 46.4 (42.0-52.0) % MCV 91.3 (80.0-94.0) fL MCH 29.7 (27.0-31.0) pg MCHC 32.5 (32.0-36.0) g/dL RDW 13.3 (12.0-15.0) % Plt Count 128 L (130-450) 10^3/uL MPV 10.5 (7.4-11.4) fL Neut # (Auto) 7.5 H (1.5-6.6) 10^3/uL Lymph # (Auto) 1.2 L (1.5-3.5) 10^3/uL Foard # (Auto) 0.7 (0.0-1.0) 10^3/uL Eos # (Auto) 0.1 (0.0-0.7) 10^3/uL Baso # (Auto) 0.0 (0.0-0.1) 10^3/uL Absolute Nucleated RBC 0.00 x10^3/uL Nucleated RBC % 0.0 /100WBC Sodium 136 (135-145) mmol/L Potassium 4.1 (3.5-5.0) mmol/L Chloride 99 L (101-111) mmol/L Carbon Dioxide 28 (21-32) mmol/L Anion Gap 9.0 (6-13) BUN 19 (6-20) mg/dL Creatinine 0.7 (0.6-1.2) mg/dL Estimated GFR (MDRD) 110 (>89) Glucose 151 H (70-100) mg/dL POC Whole Bld Glucose 162 H (70 - 100) mg/dL Estimat Average Glucose (70-100) mg/dL Hemoglobin A1c % (4.27-6.07) % Calcium 9.0 (8.5-10.3) mg/dL 10/10/21 10/10/21 10/10/21 Range/Units 16:41 12:17 07:57 WBC (4.8-10.8) x10^3/uL RBC (4.70-6.10) 10^6/uL Hgb (14.0-18.0) g/dL Hct (42.0-52.0) % MCV (80.0-94.0) fL MCH (27.0-31.0) pg MCHC (32.0-36.0) g/dL RDW (12.0-15.0) % Plt Count (130-450) 10^3/uL MPV (7.4-11.4) fL Neut # (Auto) (1.5-6.6) 10^3/uL Lymph # (Auto) (1.5-3.5) 10^3/uL Foard # (Auto) (0.0-1.0) 10^3/uL Eos # (Auto) (0.0-0.7) 10^3/uL Baso # (Auto) (0.0-0.1) 10^3/uL Absolute Nucleated RBC x10^3/uL Nucleated RBC % /100WBC Sodium (135-145) mmol/L Potassium (3.5-5.0) mmol/L Chloride (101-111) mmol/L Carbon Dioxide (21-32) mmol/L Anion Gap (6-13) BUN (6-20) mg/dL Creatinine (0.6-1.2) mg/dL Estimated GFR (MDRD) (>89) Glucose (70-100) mg/dL POC Whole Bld Glucose 182 H 157 H 193 H (70 - 100) mg/dL Estimat Average Glucose (70-100) mg/dL Hemoglobin A1c % (4.27-6.07) % Calcium (8.5-10.3) mg/dL 10/10/21 Range/Units 06:16 WBC (4.8-10.8) x10^3/uL RBC (4.70-6.10) 10^6/uL Hgb (14.0-18.0) g/dL Hct (42.0-52.0) % MCV (80.0-94.0) fL MCH (27.0-31.0) pg MCHC (32.0-36.0) g/dL RDW (12.0-15.0) % Plt Count (130-450) 10^3/uL MPV (7.4-11.4) fL Neut # (Auto) (1.5-6.6) 10^3/uL Lymph # (Auto) (1.5-3.5) 10^3/uL Foard # (Auto) (0.0-1.0) 10^3/uL Eos # (Auto) (0.0-0.7) 10^3/uL Baso # (Auto) (0.0-0.1) 10^3/uL Absolute Nucleated RBC x10^3/uL Nucleated RBC % /100WBC Sodium (135-145) mmol/L Potassium (3.5-5.0) mmol/L Chloride (101-111) mmol/L Carbon Dioxide (21-32) mmol/L Anion Gap (6-13) BUN (6-20) mg/dL Creatinine (0.6-1.2) mg/dL Estimated GFR (MDRD) (>89) Glucose (70-100) mg/dL POC Whole Bld Glucose (70 - 100) mg/dL Estimat Average Glucose 163 H (70-100) mg/dL Hemoglobin A1c % 7.3 H (4.27-6.07) % Calcium (8.5-10.3) mg/dL Assessment/Plan - Problem List (1) Acute respiratory failure with hypoxia Impression: Secondary to COVID-19 pneumonia. He is significantly improved today and is now down to room air with oxygen saturations varying from 93 to 95%. Given his marked improvement, we will keep him hospitalized 1 more night and if he remains on room air then he can be discharged home tomorrow. We have had him on Decadron and remdesivir which we will continue today but look to discontinue tomorrow if we can discharge him. He has also been on therapeutic Lovenox given his elevated D-dimer, we will check a CT angiogram. If there is no pulmonary embolisms and this will be discontinued. We will continue to monitor his respiratory status. (2) COVID-19 Impression: This is the cause of his respiratory failure. Will continue remdesivir and Decadron today but look to discontinue it tomorrow as mentioned above. We will keep him on antibiotics given there was concern for bacterial component given his elevated white count on admission. We will look to switch to oral antibiotics for discharge tomorrow. (3) Diabetes mellitus Impression: Blood glucose is well controlled. We will continue his current insulin regimen with Lantus daily and sliding scale. This has been exacerbated by the steroids will resume his home regimen on discharge. Qualifiers: Diabetes mellitus type: type 2 (4) Hypertension Impression: His blood pressure is well controlled. We have resumed his home regimen. (5) GERD (gastroesophageal reflux disease) Impression: Continue Protonix. (6) KELLY on CPAP Impression: Stable. Continue home CPAP.
[2021-10-11] MEDS: INSULIN ASPART 300 UNIT/3 ML PEN SUBQ SCH ×4 (08:37→21:28)
[2021-10-11] MEDS: allopurinoL 100 MG TABLET PO SCH (08:38)
[2021-10-11] MEDS: amLODIPine 5 MG TABLET PO SCH (08:38)
[2021-10-11] MEDS: cefTRIAXone 1 GM in SODIUM CHLORIDE 0.9% MINIBAG 100 ML IV SCH (08:39)
[2021-10-11] MEDS: DEXAMETHASONE 4 MG/ML VIAL IVP SCH (09:00)
[2021-10-11] MEDS: INSULIN GLARGINE 300 UNIT/3 ML PEN SUBQ SCH (09:01)
[2021-10-11] MEDS: ENOXAPARIN 100 MG/ML SYRINGE SUBQ SCH (09:01)
[2021-10-11] MEDS: FUROSEMIDE 20 MG TABLET PO SCH (09:01)
[2021-10-11] MEDS: lisinopriL 20 MG TABLET PO SCH (09:02)
[2021-10-11] MEDS: METOPROLOL SUCCINATE 25 MG TABLET PO SCH (09:02)
[2021-10-11] MEDS: REMDESIVIR 100MG VIAL 100 MG in SODIUM CHLORIDE 0.9% 100ML 100 ML IV SCH (09:32)
[2021-10-11] MEDS: AZITHROMYCIN INJ 500 MG in SODIUM CHLORIDE 0.9% 250 ML IV SCH (10:40)
[2021-10-11] MEDS ORDERED: IOPAMIDOL-300 100 ML VIAL ONE (13:54)
[2021-10-11] MEDS ORDERED: IOPAMIDOL-300 100 ML VIAL IVP ONE (14:43)
--- NOTE | 2021-10-11 15:05 | CT Report ---
PROCEDURE: ANGIO CHEST W/WO INDICATIONS: Hypoxia. Covid. Elevated d-dimer. CONTRAST: IV CONTRAST: Isovue 300 ml: 80 PO CONTRAST: *NO PO CONTRAST TECHNIQUE: After the administration of intravenous contrast, 2 mm axial images were acquired from the pulmonary apices to the posterior costophrenic angles during the arterial phase. In addition, 1 mm lung kernel and 5 mm soft tissue kernel reconstructions were performed. 3-dimensional coronal oblique maximum int ensity projection (MIP) reformats, 8 mm axial MIP, and 5 mm coronal and sagittal MPR reformats were t hen performed through the thorax. For radiation dose reduction, the following was used: automated exp osure control, adjustment of mA and/or kV according to patient size. COMPARISON: None FINDINGS: Image quality: Excellent. Pulmonary arteries: The pulmonary arteries demonstrate bilateral urinary emboli. The pulmonary emboli are nonocclusive. Lungs and pleura: Diffuse bilateral patchy airspace opacities in a peripheral subpleural distribution are seen consistent with patient history of Covid. Mediastinum: Heart size is normal, without pericardial effusion. No mediastinal or hilar adenopathy . The coronary arteries have atherosclerotic calcifications. Thoracic aorta is normal in caliber and enhancement. Esophagus is normal in caliber, without hiatal hernia. Bones and chest wall: No suspicious bony lesions. Ribs and thoracic spine appear intact throughout. No axillary or supraclavicular adenopathy. The thyroid is normal in size and there are no incident al findings. Abdomen: The right adrenal gland has a 3.5 x 3.1 cm nodule measuring -9 Hounsfield units most consist ent with a lipid rich benign adenoma. IMPRESSION: 1. Bilateral multisegmental but nonocclusive pulmonary emboli. 2. Bilateral airspace opacities consistent with patient history of Covid-19. 3. Benign right adrenal adenoma. Reviewed by: Will Ordonez on 10/11/2021 2:04 PM [facility] Approved by: Will Ordonez on 10/11/2021 2:04 PM [facility] Station ID: [id number]
--- NOTE | 2021-10-11 17:05 | Ultrasound Report ---
PROCEDURE: Duplex Ext Veins Bilateral INDICATIONS: XU RANDALL TECHNIQUE: Real-time imaging, as well as color and pulse Doppler interrogation, were performed of the deep veins of both legs from the inguinal ligament to the popliteal fossa. COMPARISON: None FINDINGS: The right common femoral vein and superficial femoral vein demonstrate normal compressibility. The ri ght popliteal veins and proximal tibial veins are not compressible and demonstrate thrombus consisten t with deep venous thrombosis. The calf veins are not well visualized due to edema. The left common femoral vein and proximal superficial vein demonstrate normal compressibility. The le ft mid and distal superficial femoral vein and popliteal vein are not compressible and demonstrated t hrombus consistent with deep venous thrombosis. The calf veins are not well visualized due to edema. IMPRESSION: Bilateral DVT as above. Findings were given to Dr. Marley by the industrial technician at 4:25 PM. Reviewed by: Will Ordonez on 10/11/2021 4:04 PM [facility] Approved by: Will Ordonez on 10/11/2021 4:04 PM [facility] Station ID: [id number]
[2021-10-11] MEDS: APIXABAN 5 MG TABLET PO SCH (21:26)
[2021-10-12] MEDS: SODIUM CHLORIDE FLUSH 0.9% 10 ML SYRINGE IVP SCH ×3 (03:24→17:11)
[2021-10-12 05:37] LABS: BASOPHILS % (AUTO) 0.2 %; EOSINOPHILS # (AUTO) 0.1 10^3/uL (0.0-0.7); EOSINOPHILS % (AUTO) 0.6 %; HCT - HEMATOCRIT 48.3 % (42.0-52.0); HGB - HEMOGLOBIN 15.7 g/dL (14.0-18.0); LYMPHOCYTES # (AUTO) 1.6 10^3/uL (1.5-3.5); MEAN CORPUSCULAR HEMOGLOBIN 30.1 pg (27.0-31.0); MEAN CORPUSCULAR HGB CONC 32.5 g/dL (32.0-36.0); MEAN CORPUSCULAR VOLUME 92.7 fL (80.0-94.0); MEAN PLATELET VOLUME 9.9 fL (7.4-11.4); MONOCYTES # (AUTO) 0.6 10^3/uL (0.0-1.0); MONOCYTES % (AUTO) 6.9 %; NEUTROPHILS # (AUTO) 6.3 10^3/uL (1.5-6.6); NEUTROPHILS % (AUTO) 71.9 %; PLT - PLATELET COUNT 127 10^3/uL (130-450); RED BLOOD COUNT 5.21 10^6/uL (4.70-6.10); RED CELL DISTRIBUTION WIDTH 13.3 % (12.0-15.0); WHITE BLOOD COUNT 8.7 x10^3/uL (4.8-10.8)
[2021-10-12 05:41] LABS: CREATININE 0.8 mg/dL (0.6-1.2); POTASSIUM 4.7 mmol/L (3.5-5.0)
[2021-10-12] MEDS: PANTOPRAZOLE 40 MG TABLET PO SCH (06:07)
[2021-10-12] MEDS: AMOXICILLIN 250 MG CAPSULE PO SCH ×3 (08:20→17:09)
[2021-10-12] MEDS: APIXABAN 5 MG TABLET PO SCH ×2 (08:20→21:42)
[2021-10-12] MEDS: allopurinoL 100 MG TABLET PO SCH (08:21)
[2021-10-12] MEDS: amLODIPine 5 MG TABLET PO SCH (08:21)
[2021-10-12] MEDS: METOPROLOL SUCCINATE 25 MG TABLET PO SCH (08:21)
[2021-10-12] MEDS: DEXAMETHASONE 4 MG/ML VIAL IVP SCH (08:21)
[2021-10-12] MEDS: REMDESIVIR 100MG VIAL 100 MG in SODIUM CHLORIDE 0.9% 100ML 100 ML IV SCH (08:21)
[2021-10-12] MEDS: FUROSEMIDE 20 MG TABLET PO SCH (08:21)
[2021-10-12] MEDS: lisinopriL 20 MG TABLET PO SCH (08:21)
[2021-10-12] MEDS: INSULIN ASPART 300 UNIT/3 ML PEN SUBQ SCH ×4 (08:22→21:42)
[2021-10-12] MEDS: INSULIN GLARGINE 300 UNIT/3 ML PEN SUBQ SCH (08:24)
--- NOTE | 2021-10-12 11:34 | PROVIDER PROGRESS NOTE ---
Subjective - Prog Note Date Prog Note Date: 10/12/21 - Subjective Subjective: He reports feeling well. No dyspnea at rest or with activity. He is able to walk a little bit more. His legs are still edematous. Current Medications - Current Medications Current Medications: Active Medications Acetaminophen (Acetaminophen 325 Mg Tablet) 650 mg PO Q4HR PRN PRN Reason: Pain 1 to 4 Last Admin: 10/11/21 21:26 Dose: 650 mg Documented by: Allopurinol (Allopurinol 100 Mg Tablet) 100 mg PO DAILY [facility] Last Admin: 10/12/21 08:21 Dose: 100 mg Documented by: Amlodipine Besylate (Amlodipine 5 Mg Tablet) 5 mg PO DAILY [facility] Last Admin: 10/12/21 08:21 Dose: 5 mg Documented by: Amoxicillin (Amoxicillin 250 Mg Capsule) 1,000 mg PO TIDWM [facility] Last Admin: 10/12/21 08:20 Dose: 1,000 mg Documented by: Apixaban (Apixaban 5 Mg Tablet) 10 mg PO BID [facility] Last Admin: 10/12/21 08:20 Dose: 10 mg Documented by: Benzonatate (Benzonatate 100 Mg Capsule) 100 mg PO TID PRN PRN Reason: Cough Last Admin: 10/11/21 21:26 Dose: 100 mg Documented by: Dexamethasone (Dexamethasone 4 Mg/Ml Vial) 6 mg IVP DAILY [facility] Stop: 10/18/21 09:01 Last Admin: 10/12/21 08:21 Dose: 6 mg Documented by: Furosemide (Furosemide 20 Mg Tablet) 20 mg PO DAILY [facility] Last Admin: 10/12/21 08:21 Dose: 20 mg Documented by: Hydralazine HCl (Hydralazine Inj 20 Mg/Ml Vial) 10 mg IVP Q6H PRN PRN Reason: PER PHYSICIAN ORDER Last Admin: 10/10/21 17:04 Dose: 10 mg Documented by: Remdesivir 100 mg/ Sodium (Chloride) 100 mls @ 200 mls/hr IV DAILY [facility] Stop: 10/14/21 09:29 Last Infusion: 10/12/21 09:00 Dose: Infused Documented by: Insulin Aspart (Insulin Aspart 300 Unit/3 Ml Pen) 1 - 5 unit SUBQ 0800,1200,1700,2100 [facility]; Protocol Last Admin: 10/12/21 08:22 Dose: Not Given Documented by: Insulin Glargine (Insulin Glargine 300 Unit/3 Ml Pen) 10 unit SUBQ DAILY [facility] Last Admin: 10/12/21 08:24 Dose: 10 unit Documented by: Lisinopril (Lisinopril 20 Mg Tablet) 40 mg PO DAILY [facility] Last Admin: 10/12/21 08:21 Dose: 40 mg Documented by: Metoprolol Succinate (Metoprolol Succinate 25 Mg Tablet) 25 mg PO DAILY [facility] Last Admin: 10/12/21 08:21 Dose: 25 mg Documented by: Ondansetron HCl (Ondansetron 4 Mg/2 Ml Vial) 4 mg IVP Q6HR PRN PRN Reason: Nausea / Vomiting Pantoprazole Sodium (Pantoprazole 40 Mg Tablet) 40 mg PO QDAC [facility] Last Admin: 10/12/21 06:07 Dose: 40 mg Documented by: Polyethylene Glycol (Polyethylene Glycol 3350 17 Gm Packet) 17 gm PO DAILY [facility] Sodium Chloride (Sodium Chloride Flush 0.9% 10 Ml Syringe) 10 ml IVP PRN PRN PRN Reason: NEEDED PER PROVIDER ORDERS Last Admin: 10/09/21 22:48 Dose: 10 ml Documented by: Sodium Chloride (Sodium Chloride Flush 0.9% 10 Ml Syringe) 10 ml IVP 0100,0900,1700 [facility] Last Admin: 10/12/21 08:23 Dose: 10 ml Documented by: Omeprazole 20 mg PO QDAC 07/27/16 amLODIPine [Norvasc] 5 mg PO DAILY 07/27/16 lisinopriL [Lisinopril] 40 mg PO DAILY 07/27/16 Albuterol Sulf [Ventolin Hfa Inhaler] 1 - 2 puffs INH Q4H PRN 10/10/21 Furosemide [Lasix] 20 mg PO DAILY 10/10/21 Metoprolol Succinate [Toprol Xl] 25 mg PO DAILY 10/10/21 allopurinoL [Zyloprim] 100 mg PO DAILY 10/10/21 metFORMIN [Glucophage] 500 mg PO BIDWM 10/10/21 Objective - Vital Signs/Intake & Output Reviewed Vital Signs: Yes Vital Signs: Vital Signs x48h Temp Pulse Pulse Resp BP Pulse Ox 10/12/21 07:25 36.4 C L 66 20 131/69 H 94 10/12/21 04:18 36.5 C 71 18 145/78 H 94 Intake & Output: Intake & Output 10/09/21 10/10/21 10/11/21 10/12/21 23:59 23:59 23:59 23:59 Intake Total 150 2170 1440 340 Output Total 525 6915 775 Balance 150 1645 -485 -435 - Objective General Appearance: positive: No acute distress, Alert Eyes Bilateral: positive: Normal inspection, Conjunctivae nml ENT: positive: ENT inspection nml Neck: positive: Nml inspection Respiratory: positive: No respiratory distress, Rhonchi. negative: Wheezes, Rales Cardiovascular: positive: Regular rate & rhythm. negative: Tachycardia Skin: positive: Warm, Dry Extremities: positive: Pedal edema (+1 to +2 edema in bilateral lower extremities) Neurologic/Psychiatric: positive: Motor nml. negative: Disoriented to person, Disoriented to place - Lab Results Fish Bones: 10/12/21 05:07 10/12/21 05:07 Other Labs: Lab Results x24hrs 10/12/21 10/12/21 10/12/21 Range/Units 11:09 07:23 05:07 WBC (4.8-10.8) x10^3/uL RBC (4.70-6.10) 10^6/uL Hgb (14.0-18.0) g/dL Hct (42.0-52.0) % MCV (80.0-94.0) fL MCH (27.0-31.0) pg MCHC (32.0-36.0) g/dL RDW (12.0-15.0) % Plt Count (130-450) 10^3/uL MPV (7.4-11.4) fL Neut # (Auto) (1.5-6.6) 10^3/uL Lymph # (Auto) (1.5-3.5) 10^3/uL Loving # (Auto) (0.0-1.0) 10^3/uL Eos # (Auto) (0.0-0.7) 10^3/uL Baso # (Auto) (0.0-0.1) 10^3/uL Absolute Nucleated RBC x10^3/uL Nucleated RBC % /100WBC Sodium 139 (135-145) mmol/L Potassium 4.7 (3.5-5.0) mmol/L Chloride 99 L (101-111) mmol/L Carbon Dioxide 32 (21-32) mmol/L Anion Gap 8.0 (6-13) BUN 26 H (6-20) mg/dL Creatinine 0.8 (0.6-1.2) mg/dL Estimated GFR (MDRD) 94 (>89) Glucose 145 H (70-100) mg/dL POC Whole Bld Glucose 197 H 117 H (70 - 100) mg/dL Calcium 9.0 (8.5-10.3) mg/dL 10/12/21 10/11/21 10/11/21 Range/Units 05:07 20:57 17:01 WBC 8.7 (4.8-10.8) x10^3/uL RBC 5.21 (4.70-6.10) 10^6/uL Hgb 15.7 (14.0-18.0) g/dL Hct 48.3 (42.0-52.0) % MCV 92.7 (80.0-94.0) fL MCH 30.1 (27.0-31.0) pg MCHC 32.5 (32.0-36.0) g/dL RDW 13.3 (12.0-15.0) % Plt Count 127 L (130-450) 10^3/uL MPV 9.9 (7.4-11.4) fL Neut # (Auto) 6.3 (1.5-6.6) 10^3/uL Lymph # (Auto) 1.6 (1.5-3.5) 10^3/uL Loving # (Auto) 0.6 (0.0-1.0) 10^3/uL Eos # (Auto) 0.1 (0.0-0.7) 10^3/uL Baso # (Auto) 0.0 (0.0-0.1) 10^3/uL Absolute Nucleated RBC 0.00 x10^3/uL Nucleated RBC % 0.0 /100WBC Sodium (135-145) mmol/L Potassium (3.5-5.0) mmol/L Chloride (101-111) mmol/L Carbon Dioxide (21-32) mmol/L Anion Gap (6-13) BUN (6-20) mg/dL Creatinine (0.6-1.2) mg/dL Estimated GFR (MDRD) (>89) Glucose (70-100) mg/dL POC Whole Bld Glucose 163 H 141 H (70 - 100) mg/dL Calcium (8.5-10.3) mg/dL 10/11/21 Range/Units 11:33 WBC (4.8-10.8) x10^3/uL RBC (4.70-6.10) 10^6/uL Hgb (14.0-18.0) g/dL Hct (42.0-52.0) % MCV (80.0-94.0) fL MCH (27.0-31.0) pg MCHC (32.0-36.0) g/dL RDW (12.0-15.0) % Plt Count (130-450) 10^3/uL MPV (7.4-11.4) fL Neut # (Auto) (1.5-6.6) 10^3/uL Lymph # (Auto) (1.5-3.5) 10^3/uL Loving # (Auto) (0.0-1.0) 10^3/uL Eos # (Auto) (0.0-0.7) 10^3/uL Baso # (Auto) (0.0-0.1) 10^3/uL Absolute Nucleated RBC x10^3/uL Nucleated RBC % /100WBC Sodium (135-145) mmol/L Potassium (3.5-5.0) mmol/L Chloride (101-111) mmol/L Carbon Dioxide (21-32) mmol/L Anion Gap (6-13) BUN (6-20) mg/dL Creatinine (0.6-1.2) mg/dL Estimated GFR (MDRD) (>89) Glucose (70-100) mg/dL POC Whole Bld Glucose 219 H (70 - 100) mg/dL Calcium (8.5-10.3) mg/dL ABX Reporting Has patient been on IV antibiotics over the past 48 hours?: No Assessment/Plan - Problem List (1) Acute respiratory failure with hypoxia Impression: This is now resolved. This is likely secondary to Covid pneumonia although it may also be related to the bilateral pulmonary embolisms. He is on room air today but desaturates to 89% with any activity. We will keep him hospitalized for least 1 more night. Continue remdesivir and Decadron. He is now on Eliquis for the PEs. I am hopeful he can be discharged tomorrow if his oxygen saturations are above 92% with activity. (2) COVID-19 Impression: This is contributing to his respiratory failure. CT did reveal bilateral infiltrates. He is now on room air at rest but does become hypoxic with activity. We will continue remdesivir and Decadron with hopes he can be discharged tomorrow. (3) Bilateral pulmonary embolism Impression: CT angiogram was obtained yesterday given elevated D-dimer. It revealed bilateral pulmonary embolisms. We will check a troponin and BNP although low suspicion for right heart strain. We cannot obtain an echocardiogram as it is not available this week. He has now been placed on Eliquis. I discussed with him that he will need to be treated for at least 3 to 6 months and have a hype rcoagulable work-up on outpatient basis. (4) Diabetes mellitus Impression: His blood glucose has been elevated due to steroids but controlled overall. Continue sliding scale. Qualifiers: Diabetes mellitus type: type 2 (5) Hypertension Impression: His blood pressure is well controlled on his current regimen. (6) GERD (gastroesophageal reflux disease) Impression: Continue Protonix. (7) KELLY on CPAP Impression: Continue home CPAP.
[2021-10-12] MEDS: polyethylene glycoL 3350 17 GM PACKET PO SCH (11:56)
[2021-10-13] MEDS: SODIUM CHLORIDE FLUSH 0.9% 10 ML SYRINGE IVP SCH ×2 (05:32→08:54)
[2021-10-13] MEDS: PANTOPRAZOLE 40 MG TABLET PO SCH (06:02)
[2021-10-13 06:20] LABS: BASOPHILS % (AUTO) 0.4 %; EOSINOPHILS % (AUTO) 0.4 %; HCT - HEMATOCRIT 50.8 % (42.0-52.0); HGB - HEMOGLOBIN 16.4 g/dL (14.0-18.0); LYMPHOCYTES # (AUTO) 1.7 10^3/uL (1.5-3.5); LYMPHOCYTES % (AUTO) 15.9 %; MEAN CORPUSCULAR HEMOGLOBIN 29.4 pg (27.0-31.0); MEAN CORPUSCULAR HGB CONC 32.3 g/dL (32.0-36.0); MEAN PLATELET VOLUME 10.5 fL (7.4-11.4); MONOCYTES # (AUTO) 0.8 10^3/uL (0.0-1.0); MONOCYTES % (AUTO) 7.3 %; NEUTROPHILS # (AUTO) 7.8 10^3/uL (1.5-6.6); NEUTROPHILS % (AUTO) 73.1 %; PLT - PLATELET COUNT 149 10^3/uL (130-450); RED BLOOD COUNT 5.58 10^6/uL (4.70-6.10); RED CELL DISTRIBUTION WIDTH 13.4 % (12.0-15.0); WHITE BLOOD COUNT 10.6 x10^3/uL (4.8-10.8)
[2021-10-13 06:22] LABS: CALCIUM 9.3 mg/dL (8.5-10.3); CREATININE 0.7 mg/dL (0.6-1.2); POTASSIUM 4.4 mmol/L (3.5-5.0)
[2021-10-13] MEDS: amLODIPine 5 MG TABLET PO SCH (08:52)
[2021-10-13] MEDS: APIXABAN 5 MG TABLET PO SCH (08:52)
[2021-10-13] MEDS: AMOXICILLIN 250 MG CAPSULE PO SCH ×3 (08:52→16:58)
[2021-10-13] MEDS: allopurinoL 100 MG TABLET PO SCH (08:52)
[2021-10-13] MEDS: lisinopriL 20 MG TABLET PO SCH (08:53)
[2021-10-13] MEDS: SACCHAROMYCES BOULARDII 250 MG CAPSULE PO SCH ×2 (08:53→16:58)
[2021-10-13] MEDS: FUROSEMIDE 20 MG TABLET PO SCH (08:53)
[2021-10-13] MEDS: DEXAMETHASONE 4 MG/ML VIAL IVP SCH (08:53)
[2021-10-13] MEDS: METOPROLOL SUCCINATE 25 MG TABLET PO SCH (08:53)
[2021-10-13] MEDS: polyethylene glycoL 3350 17 GM PACKET PO SCH (08:53)
[2021-10-13] MEDS: INSULIN ASPART 300 UNIT/3 ML PEN SUBQ SCH ×3 (09:05→16:58)
[2021-10-13] MEDS: INSULIN GLARGINE 300 UNIT/3 ML PEN SUBQ SCH (09:06)
[2021-10-13] MEDS: REMDESIVIR 100MG VIAL 100 MG in SODIUM CHLORIDE 0.9% 100ML 100 ML IV SCH (09:07)
--- NOTE | 2021-10-13 11:20 | Discharge Plan ---
Discharge Plan Problem Reviewed?: Yes Disposition: Home, Self Care Condition: Stable Prescriptions: Amoxicillin 875 mg PO BID #12 tablet Apixaban [Eliquis] 10 mg PO BID 6 Days #24 tablet Apixaban [Eliquis] 5 mg PO BID 90 Days #180 tablet Saccharomyces Boulardii [Florastor] 250 mg PO BIDWM 6 Days #12 cap Diet: Diabetic Activity Restrictions: Activity as Tolerated Shower Restrictions: No (fall precaution) Instruction Topics: COVID-19 [facility], COVID-19 [facility] Department Statement, Embolism Pulmonary, Apixaban oral tablets, Amoxicillin capsules or tablets Health Concerns: pulmonary Embolism, Covid 19 Plan of Treatment: You had O2 desaturation study in hospital, and You are not required to have Oxygen now. you have no acute respiratory distress. You may followup with [facility] for Covid 19 recommendations. you were found to have blood clots in your lung. You are prescribed Eliquis to treat for your blood clots. You may take 10mg twice daily for another 6 days, then your Eliquis dosage is switched to 5 mg twice daily for three months now. You may followup with your PCP to have hypercoagulation study as well to see if you need continue to have another 3 months of Eliquis. Care Goals: Stabilization and improvement of your respiratory status Assessment: Discussed the care plan with you, answered your questions, you understood Additional Instructions or Follow Up instructions: You may follow-up with your PCP in 1 week. should your symptoms return or worsen, such as you feel shortness of breathing, your oxygen saturation is drop, you may present to ER or call 911 for help No Smoking: If you smoke, Please STOP! Call for help.
--- NOTE | 2021-10-13 11:42 | DISCHARGE SUMMARY ---
Discharge Summary Admit Date: 10/09/21 Discharge Date: 10/13/21 Discharging Provider: Ramon Jorgensen Condition at Discharge: Stable Discharge Disposition: 01 Home, Self Care Discharge Facility Name: home - DIAGNOSES Discharge Diagnoses with Status of Each Condition: (1) Acute respiratory failure with hypoxia resolved. pt has 95% O2 sat on room air and no acute respiratory distress. pt had O2 desat study and did not require home O2. (2) COVID-19 stable and has no acute respiratory distress (3) Bilateral pulmonary embolism stable, pt is prescribed Eliquis to treat for his PE (4) Diabetes mellitus stable, A1C is 7.3, resume home meds (5) Hypertension stable, resume home meds (6) GERD (gastroesophageal reflux disease) stable (7) KELLY on CPAP Continue home CPAP. - HPI History of Present Illness: refer from Dr. Farias's HPI on 10/09/21 Patient is a 76-year-old male who presented to the ED with complaint of dyspnea. He is not vaccinated against COVID-19. He initially had symptoms consistent with COVID-19 on 09/29/2021. He was seen in the emergency department on 10/03/2021 and received Regeneron then discharged home. He was also prescribed doxycycline for a left lower lobe infiltrate seen on x-ray at the time. He presented today with complaint of worsening dyspnea and productive cough of yellowish to greenish sputum. He had also been wheezing at home. He denied fever or chills. In the ED on room air he was noted to have an oxygen saturation as low as 77%. Chest x-ray done in the ED showed diffuse bilateral airspace opacities suspicious for pneumonia, including viral agents such as COVID-19. Findings have progressed when compared to the radiograph from 10/01/2021. As a result of the above the patient was presented for admission. At bedside he denied chest pain or feeling dyspneic. He denied abdominal pain, nausea, vomiting, fever or chills. He has mild crackles on auscultation of lungs and 2+ lower extremity edema. - ALLERGIES Allergies/Adverse Reactions: Allergies Allergy/AdvReac Type Severity Reaction Status Date / Time No Known Drug Allergies Allergy Verified 10/03/21 13:45 - MEDICATIONS Home Medications: Ambulatory Orders Medication Instructions Recorded Confirmed Omeprazole 20 mg PO QDAC 07/27/16 10/10/21 amLODIPine [Norvasc] 5 mg PO DAILY 07/27/16 10/10/21 lisinopriL [Lisinopril] 40 mg PO DAILY 07/27/16 10/10/21 Albuterol Sulf [Ventolin Hfa 1 - 2 puffs INH Q4H PRN 10/10/21 10/10/21 Inhaler] Furosemide [Lasix] 20 mg PO DAILY 10/10/21 10/10/21 Metoprolol Succinate [Toprol Xl] 25 mg PO DAILY 10/10/21 10/10/21 allopurinoL [Zyloprim] 100 mg PO DAILY 10/10/21 10/10/21 metFORMIN [Glucophage] 500 mg PO BIDWM 10/10/21 10/10/21 Amoxicillin 875 mg PO BID #12 tablet 10/13/21 Apixaban [Eliquis] 5 mg PO BID 90 Days #180 tablet 10/13/21 Apixaban [Eliquis] 10 mg PO BID 6 Days #24 tablet 10/13/21 Saccharomyces Boulardii [Florastor] 250 mg PO BIDWM 6 Days #12 cap 10/13/21 - PHYSICAL EXAM AT DISCHARGE General Appearance: positive: No acute distress, Alert. negative: Lethargic Eyes Bilateral: positive: Normal inspection, No lid inflammation ENT: positive: ENT inspection nml, No signs of dehydration. negative: Purulent nasal drainage Neck: positive: Nml inspection, Trachea midline. negative: Tracheal deviation Respiratory: positive: Chest non-tender, No respiratory distress. negative: Wheezes, Rales Cardiovascular: positive: Regular rate & rhythm. negative: Tachycardia, Bradycardia, Systolic murmur Peripheral Pulses: positive: 2+ Abdomen: positive: Non-tender, Nml bowel sounds, No distention. negative: Tenderness Back: positive: Nml inspection Skin: positive: Color nml, Warm, Dry. negative: Cyanosis Extremities: positive: Non-tender, Full ROM, Nml appearance Neurologic/Psychiatric: positive: Oriented x3, Motor nml, Sensation nml, Mood/affect nml. negative: Weakness, Sensory loss, Facial droop, Slurred/abnml speech, Depressed mood/affect - LABS Result Diagrams: 10/13/21 05:35 10/13/21 05:35 - FOLLOW UP Follow Up: You had O2 desaturation study in hospital, and You are not required to have Oxygen now. you have no acute respiratory distress. You may followup with [facility] for Covid 19 recommendations. you were found to have blood clots in your lung. You are prescribed Eliquis to treat for your blood clots. You may take 10mg twice daily for another 6 days, then your Eliquis dosage is switched to 5 mg twice daily for three months now. You may followup with your PCP to have hypercoagulation study as well to see if you need continue to have another 3 months of Eliquis. You may follow-up with your PCP in 1 week. should your symptoms return or worsen, such as you feel shortness of breathing, your oxygen saturation is drop, you may present to ER or call 911 for help - TIME SPENT Time Spent in Discharge (Minutes): 30
[2021-10-13 16:35] VITALS: BP 142/58
== END 2021-10-13 18:54 | disposition home or self-care (01) | DRG 177 ==
LOC: EDSEX → EDBD → EDSEX 16:48 → ED 16:48 → EDBD 16:48 → MS2 19:42
PROVIDERS: ADMIT Internal Medicine; ATTEND Nurse Practitioner Gerontology
DX: U07.1 COVID-19 (principal); J96.91 Respiratory failure, unspecified with hypoxia; E11.9 Type 2 diabetes mellitus without complications; J96.01 Acute respiratory failure with hypoxia; I26.99 Other pulmonary embolism without acute cor pulmonale; J12.82 Pneumonia due to coronavirus disease 2019; I82.403 Acute embolism and thrombosis of unspecified deep veins of lower extremity, bilateral; I10 Essential (primary) hypertension; K21.9 Gastro-esophageal reflux disease without esophagitis; G47.33 Obstructive sleep apnea (adult) (pediatric); F32.A Depression, unspecified; E11.65 Type 2 diabetes mellitus with hyperglycemia; T38.0X5A Adverse effect of glucocorticoids and synthetic analogues, initial encounter; Y92.239 Unspecified place in hospital as the place of occurrence of the external cause; R60.0 Localized edema; Z79.84 Long term (current) use of oral hypoglycemic drugs; Z79.899 Other long term (current) drug therapy
CPT/HCPCS: 36415; 71045; 71275; 80048; 83036; 83880; 84100; 84484; 85025; 85379; 93005; 93970; 96372; 99283; 99285; A9270; J1650; J1815; Q9967

== ENCOUNTER 2021-10-27 17:28 | Outpatient (CLI) | payer MEDICARE, OTHER ==
--- NOTE | 2021-10-28 08:47 | XRAY Report ---
PROCEDURE: Chest 2 View X-Ray INDICATIONS: PNEUMONIA TECHNIQUE: 2 view(s) of the chest. COMPARISON: October 09, 2021 FINDINGS: SUPPORT DEVICES: None. LUNGS/PLEURA: Improved aeration of lungs with residual, predominantly peripheral airspace opacities. No pleural effusion or pneumothorax. MEDIASTINUM: The cardiomediastinal silhouette is within normal limits. BONES/SOFT TISSUES: No acute abnormality. IMPRESSION: 1.Improved aeration with residual bilateral airspace opacities. Reviewed by: Bill Thompson MD on 10/28/2021 8:46 AM [facility] Approved by: Bill Thompson MD on 10/28/2021 8:46 AM [facility] Station ID: [id number]
== END 2021-10-27 17:29 | disposition home or self-care (01) ==
LOC: DI.N 17:28
PROVIDERS: ATTEND Family Medicine
DX: J18.9 Pneumonia, unspecified organism (principal)

== ENCOUNTER 2022-04-26 14:58 | Outpatient (CLI) | payer MEDICARE, OTHER ==
--- NOTE | 2022-04-26 17:08 | XRAY Report ---
PROCEDURE: Lumbar Spine 2 View INDICATIONS: DDD LUMBAR SPINE TECHNIQUE: 3 views of the lumbar spine were acquired. COMPARISON: CT angiogram of chest dated 10/11/2021 and chest radiograph dated 10/27/2021. FINDINGS: Bones: 5 [id number] vertebrae are present. There is mild dextroscoliosis of lumbar spine cente red at L2-3 level. Degenerative endplate changes and bilateral facet arthrosis throughout lumbar spin e is seen. Age indeterminant superior endplate compression deformity involving L1 vertebral body is s een with up to 50% loss of L1 vertebral body height. No acute compression fracture seen. No suspiciou s bony lesions. Soft tissues: Overlying bowel gas pattern is normal. No suspicious soft tissue calcifications. IMPRESSION: Age indeterminant superior endplate compression deformity at L1 level new since 2 study. No other compression fracture or spondylolisthesis. 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 No gross acute compression fracture or spondylolisthesis. Scoliosis as above. Reviewed by: Dom Rodriguez MD on 04/26/2022 5:06 PM PDT Approved by: Dom Rodriguez MD on 04/26/2022 5:06 PM PDT Station ID: [id number]
== END 2022-04-26 14:59 | disposition home or self-care (01) ==
LOC: DI 14:58
PROVIDERS: ATTEND Physician Assistant Medical
DX: M51.36 Other intervertebral disc degeneration, lumbar region (principal); M43.8X6 Other specified deforming dorsopathies, lumbar region

== ENCOUNTER 2023-08-28 18:49 | Outpatient (CLI) | payer MEDICARE, OTHER | END 2023-08-28 18:50 | disposition critical access hospital (66) | LOC: EMS 18:49 | DX: S01.112A Laceration without foreign body of left eyelid and periocular area, initial encounter (principal); W18.30XA Fall on same level, unspecified, initial encounter; Y92.481 Parking lot as the place of occurrence of the external cause; F10.129 Alcohol abuse with intoxication, unspecified | CPT/HCPCS: A0425; A0429 ==

== ENCOUNTER 2023-08-28 19:09 | Emergency (ER) | payer MEDICARE, OTHER ==
--- NOTE | 2023-08-28 19:23 | ED Physician Documentation ---
PD HPI Fall - Stated complaint Stated Complaint: HBD, FELL, LEFT EYE LAC - History obtained from History obtained from: Patient, EMS - History of Present Illness Mechanism of injury: Tripped. No: Syncope Fall distance: Standing position Where injury occurred: Home (He states he had 2 drinks while watching the football game. He went outside to stand on the deck and states he tripped and fell forward. A neighbor saw him with some bleeding on the face and called EMS. He remembers the event.) Timing - onset: How many minutes ago (30), Today Injury(ies) location: Face, Right Hand (thumb). No: Neck, Chest, Abdomen Associated symptoms: No: LOC, AMS, Weakness, Paresthesias, Nausea / vomiting Worsens with: Palpation Contributing factors: Intoxicated. No: Anticoagulated Similar symptoms before: Has not had sx before Review of Systems Cardiac: denies: Chest pain / pressure GI: denies: Abdominal Pain Neurologic: denies: Focal weakness, Numbness, Altered mental status, Headache, LOC PD PAST MEDICAL HISTORY - Past Medical History Cardiovascular: Hypertension Respiratory: None Neuro: None Endocrine/Autoimmune: Type 2 diabetes GI: Ulcers : None Psych: Depression Musculoskeletal: None Derm: Psoriasis - Past Surgical History Past Surgical History: Yes Ortho: Knee replacement, Rotator cuff repair - Present Medications Home Medications: Ambulatory Orders Medication Instructions Recorded Confirmed amLODIPine [Norvasc] 5 mg PO DAILY 07/27/16 08/28/23 lisinopriL [Lisinopril] 40 mg PO DAILY 07/27/16 08/28/23 Furosemide [Lasix] 20 mg PO DAILY 10/10/21 08/28/23 metFORMIN [Glucophage] 500 mg PO BIDWM 10/10/21 08/28/23 Saccharomyces Boulardii [Florastor] 250 mg PO BIDWM PRN 08/28/23 08/28/23 - Allergies Allergies/Adverse Reactions: Allergies Allergy/AdvReac Type Severity Reaction Status Date / Time No Known Drug Allergies Allergy Verified 08/28/23 19:20 - Social History Does the pt smoke?: No Smoking Status: Never smoker Does the pt drink ETOH?: Yes Does the pt have substance abuse?: No - Immunizations Immunizations are current?: Yes - POLST Patient has POLST: No POLST Status: Full Code PD ED PE NORMAL - Vitals Vital signs reviewed: Yes - General General: Alert and oriented X 3, No acute distress, Well developed/nourished - HEENT HEENT: PERRL, EOMI, Other (partial thickness abrasion linear on left forehead. No full thickness. Small areas 1-2 mm of superficial skin loss. no FB. ) - Neck Neck: Supple, no meningeal sign, No bony TTP - Cardiac Cardiac: RRR, No murmur - Respiratory Respiratory: Clear bilaterally, Other (no chestwall tenderness) - Abdomen Abdomen: Soft, Non tender - Derm Derm: Normal color, Warm and dry - Extremities Extremities: Normal ROM s pain (except at right thumb IP joint, with bruising and swelling and deformity. Unable to bend it. Small volar lac at IP. MCP seems normal to palpation. Will get xray. 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 There is a dorsal dislocation of the distal phalanx of the thumb. There is a small corner avulsion fracture as well.) Procedures - Laceration (location) right nelida Length in cm: 1.2 (laceration of thumb near IP joint, but not exactly and so not considering open fracture.) Wound type: Linear, Into subcut fat, Clean Neurovascular status: Sensory intact, Motor intact Tendon involvement: Tendon intact Anesthesia: Lidocaine 1% Wound preparation: Irrigated copiously NS Skin layer closure: Nylon, Interrupted, Size #-0 - enter number (4), Sutures - enter # (4) Other: Patient tolerated well, No complications, Neurovascular intact, Dressing applied (and finger splint) - Reduction Body part reduced: Right, Finger (thumb) Fracture or dislocation: Dislocation Anesthesia: Digital block PD Medical Decision Making - ED course Complexity details: considered differential (The patient had been drinking and states he missed stepped and tripped outside on the deck. He remembers the event. No loss of consciousness. No concussive symptoms. A neighbor called EMS. No apparent injury otherwise. Abrasion on the forehead.), d/w patient Reviewed Lab Results: No concussive symptoms and he does not take blood thinners. He denies any headache at this time. He is able to converse well. Shared decision to not do any imaging or testing. His arrives and she is comfortable bringing him home. Departure - Departure Disposition: 01 Home, Self Care Clinical Impression: Fall from slip, trip, or stumble Qualifiers: Encounter type: initial encounter Qualified Code(s): W01.0XXA - Fall on same level from slipping, tripping and stumbling without subsequent striking against object, initial encounter Alcohol intoxication Qualifiers: Complication of substance-induced condition: uncomplicated Qualified Code(s): F10.920 - Alcohol use, unspecified with intoxication, uncomplicated Facial abrasion Qualifiers: Encounter type: initial encounter Qualified Code(s): S00.81XA - Abrasion of other part of head, initial encounter Dislocation of thumb Qualifiers: Encounter type: initial encounter Laterality: right Qualified Code(s): S63.104A - Unspecified dislocation of right thumb, initial encounter Thumb laceration Qualifiers: Encounter type: initial encounter Damage to nail status: without damage Foreign body presence: without foreign body Laterality: right Qualified Code(s): S61.011A - Laceration without foreign body of right thumb without damage to nail, initial encounter Condition: Stable Record reviewed to determine appropriate education?: Yes Instructions: ED Abrasion, ED Dislocation Finger Redu Follow-Up: Orthopedic Care [Provider Group] Comments: Your facial wound is a deep abrasion. There is no suturing indicated. Cleanse the area twice daily with soap and water and apply ointment so it does not get dry and hard. This should heal and slowly. Recheck if signs of infection. Tylenol or ibuprofen if needed for pains. You are not having any concussive type symptoms and did not appear to have any obvious injuries otherwise. Recheck with your primary care or return to the ER if you develop particular new symptoms such as headache, blurred vision, confusion, chest or abdominal pain or other concerns. You will likely be sore in various places just from the fall and Tylenol or ibuprofen are fine for that. The thumb was dislocated at the middle joint. It is now reduced and back in position. There is a small fracture at the corner of the joint. He will want to splint the thumb much of the time to protect it. Gentle range of motion is okay so it does not get too stiff. It will take about 4 weeks for healing. Follow-up with orthopedics in about 2 weeks to ensure its healing well. Forms: PCP List Discharge Date/Time: 08/28/23 20:10
[2023-08-28] MEDS ORDERED: LIDOCAINE 1% 2 ML VIAL SUBQ STA (20:01)
--- NOTE | 2023-08-28 20:09 | XRAY Report ---
PROCEDURE: Finger(s) RT INDICATIONS: right thumb pain after fall TECHNIQUE: AP hand, 2 views of the first finger(s) acquired. COMPARISON: None. FINDINGS: Bones: Dislocation of the interphalangeal joint, with associated fracture along the base of the firs t distal phalanx. The distal phalanx is dislocated dorsally relative to the proximal phalanx. Soft tissues: No suspicious soft tissue calcifications or masses. IMPRESSION: Fracture dislocation across the first interphalangeal joint. Reviewed by: Joce Codrova on 08/28/2023 8:08 PM [facility] Approved by: Joce Cordova on 08/28/2023 8:08 PM [facility] Station ID: [id number]
[2023-08-28 20:18] VITALS: BP 140/64; O2SAT 99
== END 2023-08-28 20:10 | disposition home or self-care (01) ==
LOC: EDUNIT# → EDSEX → ED 19:09
DX: S00.81XA Abrasion of other part of head, initial encounter (principal); S61.011A Laceration without foreign body of right thumb without damage to nail, initial encounter; S63.104A Unspecified dislocation of right thumb, initial encounter; W01.0XXA Fall on same level from slipping, tripping and stumbling without subsequent striking against object, initial encounter; Y92.007 Garden or yard of unspecified non-institutional (private) residence as the place of occurrence of the external cause; F10.920 Alcohol use, unspecified with intoxication, uncomplicated; I10 Essential (primary) hypertension; E11.9 Type 2 diabetes mellitus without complications; Z79.84 Long term (current) use of oral hypoglycemic drugs
CPT/HCPCS: 12001; 26755; 99283

== ENCOUNTER 2023-10-25 00:27 | Outpatient (CLI) | payer MEDICARE, OTHER | END 2023-10-25 00:28 | disposition short-term general hospital (02) | LOC: EMS 00:27 | DX: S79.922A Unspecified injury of left thigh, initial encounter (principal); S79.921A Unspecified injury of right thigh, initial encounter; W10.8XXA Fall (on) (from) other stairs and steps, initial encounter; Y92.028 Other place in mobile home as the place of occurrence of the external cause | CPT/HCPCS: A0425; A0427 ==

== ENCOUNTER 2024-02-27 10:55 | Outpatient (CLI) | payer MEDICARE, OTHER | END 2024-02-27 22:51 | disposition short-term general hospital (02) | LOC: EMS 10:55 | DX: I10 Essential (primary) hypertension (principal) | CPT/HCPCS: A0425; A0429 ==